=== PATIENT | female | born 1935 | race Caucasian/White ===

== ENCOUNTER 2024-01-18 17:17 | Inpatient (IN) | payer MEDICARE, OTHER, SELFPAY ==
[2024-01-18] VITALS (7 sets, daily range): BP systolic 121–167; BP diastolic 58–116
--- NOTE | 2024-01-18 14:40 | ED.GENMED ---
History of Present Illness
General
Chief Complaint: Fall
Source: patient
Exam Limitations: none
Time Seen by Provider: 01/18/24 14:11
Nursing documentation reviewed up to this point in time: agreed with
Travel History
Have you had any contact with someone who has COVID-19?: No
Do you have any symptoms of coronavirus? Fever > 100 degrees, chills, cough, shortness of breath, sore throat, loss of taste or smell, muscle aches, or headache?: No
History of Present Illness
History of Present Illness:
88-year-old female from [facility] presents to the ER for evaluation of right hip pain after fall. She was walking and rushing and reports that she lost her footing and fell landing on her right hip. She denies hitting her head her only
complaint is right hip pain with movement of right leg.
Past History
Past History
ED Past Medical History: HTN, Hypercholesterolemia and Other (Osteoporosis, diverticulosis)
ED Past Surgical History: Other (Laparotomy)
Review of Systems
Review of Systems
Allergies reviewed?: Yes
All Other Systems: ROS reviewed and negative except as documented in HPI and ROS
Constitutional: Reports no symptoms
ABD/GI: Reports no symptoms; Denies nausea or vomiting
Musculoskeletal: Reports other (right hip pain )
Skin: Reports no symptoms
Psychiatric: Reports no symptoms
Phy Exam
General Physical Exam
General Presentation: no apparent distress
General age: appears stated age
General Skin: warm and dry
General Habitus: normal
General Mental: alert
Neurological Exam
Neurological Exam: alert and oriented x3
Musculoskeletal Exam
Musculoskeletal Exam: other (Discomfort to right hip with any range of motion strong distal pulses.)
Skin Exam
Skin Exam: normal color and warm/dry
Psychiatric Exam
Psychiatric Exam: normal mood/affect
Course
Orders/Labs/Results
Orders:
Orders
01/18/24 14:40
Hip, Right 2-3 Views [CR Hip - RT w/wo Pel 2-3 Vw*] Urgent
Comment:
Reason For Exam: trauma
Include a pelvis x-ray?: Yes
01/18/24 14:46
Complete Blood Count/With Diff Urgent
Comprehensive Metabolic Panel Urgent
01/18/24 16:27
CT Lower Ext W/o Iv Cont Rt Urgent
Comment:
Reason For Exam: trauma
Abnormal Lab Results
01/18/24
14:46
MCH 32.8 H pg
(27.0-31.0)
Abs Immat Gran (auto) 0.1 H 10^3/uL
(0-0.05)
Absolute Lymphs (auto) 1.0 L 10^3/uL
(1.2-3.4)
Immature Gran % 1.2 H %
(0-0.5)
BUN 20 H mg/dl
(7-17)
01/18/24 14:46
01/18/24 14:46
Vital Signs
Initial and Last Documented VS:
Initial Vital Signs
Pulse Resp BP Pulse Ox
64 14 158/116 94
01/18/24 14:07 01/18/24 14:07 01/18/24 14:07 01/18/24 14:07
Last Documented Vital Signs
Temp Pulse Resp BP Pulse Ox
97.9 F 54 16 167/64 94
01/18/24 14:11 01/18/24 15:15 01/18/24 15:15 01/18/24 15:00 01/18/24 15:15
MDM/Problems Addressed
Differential Diagnosis Includes:
Not limited to hip fracture contusion for strain/dislocation
MDM/Problems Addressed:
Patient is a 88-year-old female who describes mechanical fall landing on right side. Patient complains of right hip pain no obvious deformity. Patient does have an obvious subcapital fracture. She denies hitting her head .
Case reviewed with orthopedics and admitting hospitalist orthopedics does recommend CAT scan and a right femur x-ray she is not blood thinners. Will keep n.p.o. after midnight discussed admitting hospitalist as well as documented. Patient is
comfortable at rest I did offer her medication for discomfort but she declines
Chronic conditions affecting care:
Hypertension hyperlipidemia
*Radiology
Radiology exam reviewed: radiology read reviewed (Right hip slightly impacted transverse subcapital fracture femoral head remains situated within the acetabulum without dislocation)
*Pulse Oximetry
Patient hypoxic: no
*Critical Care Note
Total Time (30-74mins, 75-104mins- exclusive of procedures): Not Applicable
Patient Management
Discussion with other providers: Station Engineer Main Line (ortho )
ED Attending Note
-
Portions of this chart may have been created with voice recognition software.� Occasional wrong word or��sound alike� substitutions may have occurred due to the inherent limitations of voice recognition software.
Discharge Plan
Departure
Patient Disposition: Admit
Date of Disposition: 01/18/24
Time of Disposition: 16:29
Admit to: Med/Surg
Admit to doctor: hospitalist
Presentation/result/management discussed w/ accepting MD/DO: Hospitalist
Patient with high blood pressure during this ER visit?: Yes
Condition: Fair
Covid-19: Not Applicable
Discharge Problem:
Closed fracture of right hip
Prescriptions:
No Action
atorvastatin 10 MG tablet
10 mg PO DAILY
donepezil 10 MG tablet
10 mg PO Q48H
clonazepam 0.5 MG tablet
0.5 mg PO DAILY
acetaminophen 500 MG tablet
500 mg PO Q6HPRN PRN (Reason: pain/fever)
levothyroxine 75 MCG tablet
75 mcg PO Q48H
magnesium 200 MG tablet
200 mg PO DAILY
cholecalciferol (vitamin D3) 2,000 UNITS tablet
2,000 units PO DAILY
multivit [id number] 186 [Hair, Skin and Nails Advanced] 1 EACH tablet
1 ea PO DAILY
cranberry fruit [cranberry] 450 MG tablet
450 mg PO DAILY
Referrals:
Mariam Ramachandran MD [Family Provider] -
Interventions
Interventions:
*Risk Screen - Suicide Last Done: 01/18/24 14:13
*General Assessment Last Done: 01/18/24 14:12
*Neglect/Abuse Screening Last Done: 01/18/24 14:13
*ED COVID-19 Vaccine History Last Done: 01/18/24 14:12
ED-Musculoskeletal Assessment Last Done: 01/18/24 14:13
ED- Neurological Assessment Last Done: 01/18/24 14:13
ED-Skin Assessment Last Done: 01/18/24 14:13
Discharge Date and Time
Print Language: ANGOLAN
[2024-01-18 14:56] LABS: % Basophils 0.4 % (0-2); % Eosinophils 3.3 % (0-6); % Immature Granulocytes 1.2 % (0-0.5); % Monocytes 5.1 % (1.7-9.3); Absolute Eosinophils 0.2 10^3/uL (0-0.7); Absolute Immature Granulocytes 0.1 10^3/uL (0-0.05); Absolute Monocytes 0.3 10^3/uL (0.1-0.6); Absolute Neutrophils 3.4 10^3/uL (1.4-6.5); Hematocrit 42.9 % (37.0-47.0); Hemoglobin 14.5 g/dL (12.0-16.0); Mean Corp Hgb Conc. 33.8 g/dL (33.0-37.0); Mean Corpuscular Hgb 32.8 pg (27.0-31.0); Mean Corpuscular Volume 97.1 fL (81.0-99.0); Mean Platelet Volume 10.2 fL (7.4-10.4); Nucleated Red Blood Cells % 0 %; Platelet Count 211 10^3/uL (130-400); Red Blood Cell Count 4.42 10^6/uL (4.20-5.40); Red Cell Dist. Width 13.3 % (11.5-14.5); White Blood Cell Count 4.9 10^3/uL (4.8-10.8)
[2024-01-18 15:29] LABS: ALT (SGPT) 27 U/L (0-35); AST (SGOT) 33 U/L (14-36); Albumin 4.4 g/dl (3.5-5.0); Alkaline Phosphatase 94 U/L (38-126); Blood Urea Nitrogen 20 mg/dl (7-17); Calcium 9.7 mg/dl (8.4-10.2); Carbon Dioxide 29 mmol/L (22-30); Chloride 103 mmol/L (98-107); Glucose 97 mg/dl (70-99); Sodium 139 mmol/L (135-145); Total Bilirubin 0.6 mg/dl (0.2-1.3); Total Protein 7.3 g/dl (6.3-8.2); eGFR > 60.00
--- NOTE | 2024-01-18 16:21 | HPS.HSE ---
Family Physician
<BRIGITTE Kramer - Last Filed: 01/18/24 16:56>
-
Family Physician: Mariam Ramachandran
Chief Complaint
<BRIGITTE Kramer - Last Filed: 01/18/24 16:56>
-
fall with hip pain
History of Present Illness
88-year-old with past medical history for hypertension, hyperlipidemia presented to us status post fall. Patient was resting from one building to other building. She was walking very fast she lost her balance and fell on her right side. She was
not able to get up from the floor. Patient complaining of right hip pain. Patient denies any headache dizziness or syncopal episode. Patient denies any fever, chills, chest pain, short of breath. Patient denies any abdominal pain, nausea,
vomiting or diarrhea. Patient denies dysuria hematuria.
Hip x-ray with Right hip slightly impacted transverse subcapital fracture. Femoral head remains situated within the acetabulum without dislocation. No osseous pelvic fracture identified. Admitted for further management
Medical History
<BRIGITTE Kramer - Last Filed: 01/18/24 16:56>
Past Medical History
Past Medical History: Reports Other
Additional Past Medical History:
Urinary tract infection
Hypercholesteremia
Hypothyroid
Alzheimer's
Hypertension
Perforated colon
Overactive bladder
Past Surgical History: Reports None
Social History
Tobacco: Non-smoker
Alcohol: None
Drug: None
Personal: Single
Living: Alone
Family History
Family History: Not pertinent
Allergies / Home Medications
Allergies reflects when Allergies were last updated in [facility].
Home Medications with original date entered in [facility]
Allergy/Medication List:
Allergies
Allergy/AdvReac Type Severity Reaction Status Date / Time
NKA - No Known Allergies Allergy Unknown Uncoded 09/21/16 04:32
Home Medications
acetaminophen 500 mg tablet 500 mg PO Q6HPRN PRN pain/fever 03/04/22
atorvastatin 10 mg tablet 10 mg PO DAILY 03/04/22
cholecalciferol (vitamin D3) 50 mcg (2,000 unit) tablet 2,000 units PO DAILY 03/04/22
clonazepam 0.5 mg tablet 0.5 mg PO DAILY 03/04/22
cranberry fruit 450 mg tablet (cranberry) 450 mg PO DAILY 03/04/22
donepezil 10 mg tablet 10 mg PO Q48H 03/04/22
levothyroxine 75 mcg tablet 75 mcg PO Q48H 03/04/22
magnesium 200 mg tablet 200 mg PO DAILY 03/04/22
multivitamin,min-ferrous fumarate 3.3 mg-folic 25 mcg-herb tablet (Hair, Skin and Nails Advanced) 1 ea PO DAILY 03/04/22
Review of Systems
<BRIGITTE Kramer - Last Filed: 01/18/24 16:56>
-
Constitutional: Reports No Symptoms
EENT: Reports No Symptoms
Respiratory: Reports No Symptoms
Cardiac: Reports No Symptoms
Abdomen/GI: Reports No Symptoms
: Reports No Symptoms
Musculoskeletal: Reports Other (Right hip pain)
Skin: Reports No Symptoms
Neurological: Reports No Symptoms
Endocrine: Reports No Symptoms
Hematologic/Lymphatic: Reports No Symptoms
Psych: Reports No Symptoms
Physical Exam
<BRIGITTE Kramer - Last Filed: 01/18/24 16:56>
Vital Signs
Vital Signs
Temp Pulse Resp BP Pulse Ox
97.9 F 54 16 167/64 94
01/18/24 14:11 01/18/24 15:15 01/18/24 15:15 01/18/24 15:00 01/18/24 15:15
Physical Exam
General: Well Developed, Well Nourished and No Apparent Distress
HEENT: NormoCephalic, Moist mucous membranes and Atraumatic
Respiratory: Clear
Cardiac: S1/S2 and Regular Rhythm; No Murmur or Rub
GI: Soft, Non Tender, Non Distended and Normal Bowel Sounds; No Organomegaly
Rectal: Deferred by Provider
Musculoskeletal: No Clubbing, No Cyanosis and No Edema
Skin: No Rash
Neuro: AO x 3 and Nonfocal/grossly intact
Psych: Calm
Laboratory Results
<BRIGITTE Kramer - Last Filed: 01/18/24 16:56>
-
01/18/24 14:46
01/18/24 14:46
Laboratory Results
Total Bilirubin 0.6 mg/dl (0.2-1.3) 01/18/24 14:46
AST 33 U/L (14-36) 01/18/24 14:46
ALT 27 U/L (0-35) 01/18/24 14:46
Alkaline Phosphatase 94 U/L (38-126) 01/18/24 14:46
Data Reviewed
<BRIGITTE Kramer - Last Filed: 01/18/24 16:56>
-
Diagnostic Radiology: Report Reviewed by me
Lab Data: Labs Reviewed by me
Impression/Plan
<BRIGITTE Kramer - Last Filed: 01/18/24 16:56>
-
# Status post fall with right hip fracture
-Hip x-ray with impression of Right hip slightly impacted transverse subcapital fracture. Femoral head remains situated within the acetabulum without dislocation. No osseous pelvic fracture identified
-PT/OT consulted
-obtain CT of hip and right femur x ray
-maintain NPO after MN
-Orthopedics consulted
# Essential hypertension
-Patient stable
-Amlodipine continued
# History of Alzheimer's
-Aricept continued
-clonazepam at HS
# Hyperlipidemia
-Statin continued
# Hypothyroidism
-Levothyroxine continued
# DVT prophylaxis
-SCD
# CODE STATUS
-Full code
<César Villarreal MD - Last Filed: 01/18/24 17:38>
-
# Status post fall with right hip fracture
-Hip x-ray with impression of Right hip slightly impacted transverse subcapital fracture. Femoral head remains situated within the acetabulum without dislocation. No osseous pelvic fracture identified
-PT/OT consulted
-obtain CT of hip and right femur x ray
-maintain NPO after MN
-Orthopedics consulted
# Essential hypertension
-Patient stable
-Amlodipine continued
# History of Alzheimer's
-Aricept continued
-clonazepam at HS
# Hyperlipidemia
-Statin continued
# Hypothyroidism
-Levothyroxine continued
# DVT prophylaxis
-SCD
# CODE STATUS
-Full code
I saw and examined the patient.
The VENDING MACHINE MECHANIC or PA's note was reviewed and I agree with the note.
Physical Exam
General: Well Developed, Well Nourished and No Apparent Distress
HEENT: NormoCephalic, Moist mucous membranes and Atraumatic
Respiratory: Clear
Cardiac: S1/S2 and Regular Rhythm; No Murmur or Rub
GI: Soft, Non Tender, Non Distended and Normal Bowel Sounds; No Organomegaly
Rectal: No rectal bleeding
Musculoskeletal: No Clubbing, No Cyanosis and No Edema
Skin: No Rash
Neuro: AO x 3 and Nonfocal/grossly intact
Psych: Calm
Comment:
88-year-old female had mechanical fall and sustained a right hip pain
No head trauma
No syncopal episode or loss of consciousness
# Status post fall with right hip fracture
-Hip x-ray with impression of Right hip slightly impacted transverse subcapital fracture. Femoral head remains situated within the acetabulum without dislocation. No osseous pelvic fracture identified
-PT/OT consulted
-obtain CT of hip and right femur x ray
-maintain NPO after MN
-Appreciate orthopedic input
# Essential hypertension
Was uncontrolled on admission with/ blood pressure 158/ 116 currently blood pressure 145/67. No chest pain or headache. Will continue to monitor and add as needed hydralazine
-Amlodipine continued
# History of Alzheimer's
No agitation.
-Aricept continued
-clonazepam at HS
# Hyperlipidemia
-Statin continued
# Hypothyroidism
-Levothyroxine continued
# DVT prophylaxis
-SCD
# CODE STATUS
-Full code
Total time spent to see the patient, examine the patient, review data and lab results, discuss treatment plan with patient, nursing staff, ER doctor around 75 minutes
[2024-01-18] MEDS: TYLENOL 650 MG PO (19:08)
[2024-01-18] MEDS: COLACE 100 MG PO (19:08)
[2024-01-18] MEDS: SENOKOT 17.1999999999999993 MG PO (19:08)
[2024-01-18] MEDS: ROXICODONE PO (19:09)
[2024-01-18] MEDS: DETROL LA 4 MG PO (19:09)
[2024-01-18] MEDS: ARICEPT 10 MG PO (21:36)
[2024-01-18] MEDS: KLONOPIN 0.5 MG PO (21:36)
[2024-01-18] MEDS: LIPITOR 10 MG PO (21:36)
[2024-01-19] VITALS (11 sets, daily range): BP systolic 102–133; BP diastolic 49–89; BMI 23.1
[2024-01-19] MEDS: TYLENOL PO ×3 (01:16→15:07)
--- NOTE | 2024-01-19 04:11 | PTCARENOTE ---
pt washed and first set of chg wipes completed.
[2024-01-19] MEDS: SYNTHROID 75 MCG PO (05:02)
[2024-01-19] MEDS: TYLENOL 650 MG PO ×3 (05:02→19:50)
--- NOTE | 2024-01-19 07:41 | W.PN.UPDATE ---
Update Note
Progress Note Update
Full H&P to follow
Patient admitted to [facility] following a mechanical fall resulting in right hip fracture. Plan is for OR for right hip hemiarthroplasty under the direction of Dr. Avilez later today. Remain NPO. Ancef dice person to OR. Surgical and blood
consents obtained and placed on chart. Will continue to follow
[2024-01-19] MEDS: SENOKOT 17.1999999999999993 MG PO ×2 (08:33→19:50)
[2024-01-19] MEDS: ANCEF 10 IV (08:33)
[2024-01-19] MEDS: MIRALAX 17 GRAMS PO (08:33)
[2024-01-19] MEDS: COLACE 100 MG PO ×2 (08:33→19:50)
[2024-01-19] MEDS: NORVASC 2.5 MG PO (08:35)
--- NOTE | 2024-01-19 08:58 | CON.ORTHO ---
Consultation
-
Date/Time Consultation Requested: 01/18/24
Date/Time Consultation Performed: 01/19/24 @7am
Requesting Provider: Asuncion Paul
Performing Provider: Karrie Reyes PAC for Humberto Avilez
Reason for Consultation: right hip fracture
Consultation - Orthopedics
History
HPI: 88yo female presented to [facility] following a fall. She states that she was going to [facility] when she realized she walked to the wrong location. She was then rushing to get to the correct location, when she tripped and fell, landing
on her left side. She was unable to bear weight on the leg. She reports that she walks daily and does not use any assistive devices. Xrays performed in the ER reveal a right hip fracture. Orthopedics has been consulted for further management. She is
not on any blood thinners. Currently, she is resting comfortably in bed and reports pain only with movement of the right leg.
PAST MEDICAL HISTORY: hypertension, hypercholesterol, osteoporosis, diverticulitis
PAST SURGICAL HISTORY: laparotomy
SOCIAL HISTORY: denies tobacco, alcohol. She lives at [facility] in independent living
FAMILY HISTORY: Noncontributory
REVIEW OF SYSTEMS: 12 point review of systems obtained and negative except those mentioned in the HPI
Allergies / Home Medications
Allergy/AdvReac Type Severity Reaction Status Date / Time
NKA - No Known Allergies Allergy Unknown Uncoded 09/21/16 04:32
�Medication �Instructions �Recorded
acetaminophen 500 mg tablet 500 mg PO Q6HPRN PRN pain/fever 03/04/22
atorvastatin 10 mg tablet 10 mg PO HS 03/04/22
cholecalciferol (vitamin D3) 50 2,000 units PO DAILY 03/04/22
mcg (2,000 unit) tablet
clonazepam 0.5 mg tablet 0.5 mg PO HS 03/04/22
cranberry fruit 450 mg tablet 900 mg PO HS 03/04/22
(cranberry)
donepezil 10 mg tablet 10 mg PO HS 03/04/22
levothyroxine 75 mcg tablet 75 mcg PO Q48H 03/04/22
magnesium 200 mg tablet 400 mg PO DAILY 03/04/22
amlodipine 2.5 mg tablet 2.5 mg PO DAILY 01/18/24
polyethylene glycol 3350 17 gram 17 g PO DAILY 01/18/24
oral powder packet (Miralax)
solifenacin 10 mg tablet 10 mg PO QPM 01/18/24
Vital Signs / Lab Results
Temp Pulse Resp BP Pulse Ox
98.4 F 56 16 133/69 97
01/19/24 07:44 01/19/24 07:44 01/19/24 07:44 01/19/24 07:44 01/19/24 07:44
01/18/24 14:46
01/18/24 14:46
RADIOGRAPHIC FINDINGS:
Xrays right hip and femur: Right hip slightly impacted transverse subcapital fracture. Femoral head remains situated within the acetabulum without dislocation. No osseous pelvic fracture identified
CT right lower extremity: Right hip subcapital fracture. Slightly impacted. Subtle apex medial angulation. Mild medial displacement of the femoral neck relative to the femoral head. The femoral head remains situated within the acetabulum, without
evidence of dislocation
PHYSICAL EXAM:
General: well developed well nourished female in no acute distress
HEENT: NCAT, sclera anicteric, normal hearing
Heart: No JVD
Lungs: Normal work of breathing on room air
MSK: Focused exam of right lower extremity reveals skin intact. Right leg shortened and externally rotated. +TTP generally about the hip. +Log roll. Calf soft and nontender. Able to plantarflex/dorsiflex the ankle. NVI distally
Assessment / Plan
ASSESSMENT: 88yo female with right subcapital hip fracture following mechanical fall
PLAN: Ms. Cardoza unfortunately sustained a right hip fracture following a mechanical fall last evening. Recommend surgical fixation of this hip fracture. The risks, benefits, potential complications, and expected postop course were reviewed. She
agrees to proceed. Will plan for OR for right hip hemiarthroplasty later today under the direction of Dr. Avilez given she is medically cleared. Surgical and blood consents were obtained. Remain NPO. Ancef hotel yardperson to OR. She is to remain on bedrest
until postop. Will require PT/OT evaluation postoperatively. Continue with current pain management regimen as needed. We will continue to follow along.
--- NOTE | 2024-01-19 09:35 | W.PN.HOSP.TC ---
Today's Communication/Plan
-
.
Assessment / Plan
Assessment / Plan
Physical Exam
General: Well Developed, Well Nourished and No Apparent Distress
HEENT: NormoCephalic, Moist mucous membranes and Atraumatic
Respiratory: Clear
Cardiac: S1/S2, + murmur.
GI: Soft, Non Tender, Non Distended and Normal Bowel Sounds; No Organomegaly
Rectal: No rectal bleeding.
Musculoskeletal: No Clubbing, No Cyanosis and No Edema
Skin: No Rash
Neuro: AO x 3 and Nonfocal/grossly intact
Psych: Calm
# Right subcapital hip fracture following mechanical fall with
right hip hemiarthroplasty patient is having pain upon mild
c/w pain control. Movement while in bed
Good peripheral pulses
DVT prophylaxis with mechanical form pending surgery as requested by Ortho doctor.
Appreciate Orth input
# Pre- Op evaluation
Patient denied history of coronary artery disease or heart failure. No chest pain upon activity at home.
Talk to the daughter, no history of heart failure or angina
Patient has heart murmur on examination
Will order EKG.
She is not in heart failure.
Ordered echocardiogram but should not prevent patient from having surgery if echo is still
Benefits of surgery and early ambulation outweigh the risks
# Essential hypertension
-Patient stable
-Amlodipine continued
# History of Alzheimer's
-Aricept continued. No agitation noted
-clonazepam at HS
# Hyperlipidemia
-Statin continued
# Hypothyroidism
-Levothyroxine continued
# DVT prophylaxis
-SCD
# CODE STATUS
-Full code
Daughter requested to talk to surgery about operation. Reached out to service.
Total time spent to see the patient, examine the patient, review data and lab results, discuss treatment plan with patient, daughter, nursing staff around 55 minutes
Anticipated Discharge: > 48 hours
Subjective/Interval History
-
Date of Service: January 19, 2024
No chest pain
No sob
No fevers
Objective Data
-
Vital Signs:
Vital Signs
Temp Pulse Resp BP Pulse Ox
98.4 F 56 16 133/69 97
01/19/24 07:44 01/19/24 07:44 01/19/24 07:44 01/19/24 07:44 01/19/24 07:44
--- NOTE | 2024-01-19 15:19 | CM ---
Addendum entered by Lainey Prater RN 01/19/24 16:01:
CM spoke with the patient's daughter at bedside. The patient resides in an independent living apartment at [facility]. The patient does no use any DME, no VN or SNF in the past. The patient's discharge plans will most likely be to a SNF/rehab
prior to transitioning back to apartment. CM continues to be available to patient/family and is monitoring medical plan for needs at discharge.
Plan: Discharge to SNF/rehab prior to transitioning back to apartment. No precert required. [facility] SNF would be first choice.
Original Note:
Reviewed the chart notes. Patient out of room today for OR.
--- NOTE | 2024-01-19 15:38 | PTCARENOTE ---
Pt's daughters updated that patient is still in the OR.
[2024-01-19 18:10] LABS: Hematocrit 35.1 % (37.0-47.0); Hemoglobin 12.3 g/dL (12.0-16.0)
[2024-01-19] MEDS: DETROL LA 4 MG PO (19:12)
[2024-01-19] MEDS: ASPIRIN 325 MG PO (19:12)
--- NOTE | 2024-01-19 20:39 | OR.RPT ---
Operative Report
Operative Report
Orthopedic Surgery Operative Report
Date of Surgery: 01/19/24
PREOPERATIVE DIAGNOSES:
1. Right subcapital femoral neck fracture
POSTOPERATIVE DIAGNOSES:
1. Right subcapital femoral neck fracture
PROCEDURE PERFORMED:
1. Right hip hemiarthroplasty
SURGEON: Humberto Avilez D.O.
CO-SURGEON: Dusty Shafer MD
ASBESTOS TEXTILE SUPERVISOR: YESSY Muhammad, who helped with patient and limb positioning and retraction
ANESTHESIA: General endotracheal
COMPLICATIONS: Intraoperative femur fracture, repaired with cables
ESTIMATED BLOOD LOSS: 100 cc
DRAINS: None
SPECIMEN: None
IMPLANTS:
[employer] Implants-
Cemented size 12 Versys stem
45 mm Bipolar
28mm +3.5mm head
INDICATION FOR SURGERY: Patient is an 88 year old female who presented to [facility] status post fall. Patient was unable to ambulate immediately after the fall. Imaging at the hospital demonstrated a right subcapital femoral neck
fracture. Due to the nature of the injury, a decision was made to proceed with a right hip hemiarthroplasty. All operative, nonoperative options were discussed with the patient and/or family. The risks, benefits, alternatives, and indications
were discussed with the patient in detail. The risks include, but are not limited to bleeding requiring transfusion, infection, need for reoperation, nerve or blood vessel damage, anesthetic risks, need for further surgery, continued pain, blood
clots in the legs, heart attack, stroke, , neurovascular injury, dislocation, continued pain, numbness, weakness. The patient understands the risks and elected to proceed. Informed consent was obtained preoperatively from patient and
daughter.
PROCEDURE IN DETAIL: The patient was identified in the preoperative holding area. The surgical site was appropriately marked. The patient was brought to the operating room. General endotracheal anesthesia was achieved. The patient was given
routine preop intravenous antibiotics and was positioned on the operating table. Great care was taken to pad and protect all extremities and pressure points. The patient was prepped and draped in the usual sterile manner. A preoperative surgical
time-out was taken.
A linear incision was made along the anterior one third aspect of the greater trochanter. Skin and subcutaneous tissues were dissected sharply with a knife. All bleeding was controlled using Bovie electrocautery. Dissection was carried deep until
the fascia was reached. A small opening was made in the fascia using the Bovie. The tensor was then split using Metzenbaum scissors. The underlying gluteus medius musculature and greater trochanter were visualized. The gluteus medius and the
proximal aspect of the vastus lateralis muscles were elevated off of the femur using Bovie electrocautery. The gluteus minimus muscle was also partially elevated off of the proximal femur in a similar fashion using Bovie electrocautery. The
capsule was then encountered medially. A capsulotomy was performed to reveal the fractured femoral neck. Fracture hematoma was encountered. Fracture hematoma was removed. Retractors were introduced underneath the fractured femoral neck. A neck
cut was performed with an oscillating saw. The femoral head was then removed from the hip socket. The femoral head was measured to obtain a size for the implant. The hip socket was then irrigated and all bony remnants and debris were removed.
Attention was turned towards preparing the femoral shaft. A crap game box person was used to gain access to the femoral canal. A lateralizer was used followed by sequential broaches to prepare the femoral canal for stent implantation. Once adequate broach
fit in the femoral canal was obtained, trialing was initiated. While trialing and re-reduction of the trial head, an anterior femur cortical fracture was encountered. The trials were removed, the fracture was reduced and cables were applied.
Intraoperative fluoroscopy was used- no distal propagation of the fracture was evident. A cable was applied distal to the lesser trochanter as well. Trialing was once again initiated. A standard neck and a size 45 head was utilized. This was found
to be too slghtly loose. A +3.5 head offset was utilized. The hip was relocated and taken through a range of motion which included flexion with internal rotation and extension with external rotation. The hip was noted to be stable. The hip was
once again dislocated and the implants were removed. The wound was copiously irrigated. Due to the poor bone quality and age of the patient, a decision was made to proceed with cementation of the stem. The femoral canal was then copiously
irrigated, cleaned and dried in preparation for cement placement. A cement restrictor was placed in the femoral canal. Cement was then placed in the femoral canal. Once cement was of adequate consistency, the final implant stem was inserted into
the femoral canal. Excess cement was removed. Once the cement had hardened, the bipolar head was placed onto the lord taper and impacted into place. The hip was then relocated. Final range of motion was checked and was found to be stable. The
surgical site was then copiously irrigated with saline. The hip capsule was repaired with 0-Vicryl suture. The abductors were repaired using #1 Ethibond suture. Vastus lateralis was repaired using 0-Vicryl suture. The wound was once again
irrigated with saline. The fascia was repaired using vicryl suture. The deep and subcutaneous tissues were approximated using vicryl suture as well. Skin was approximated using renato. Patient tolerated the procedure well with no immediate
complications. All counts at the end of the procedure were correct.
Humberto Avilez D.O.
Orthopedic Surgery
[2024-01-19] MEDS: ARICEPT 10 MG PO (21:38)
[2024-01-19] MEDS: KLONOPIN 0.5 MG PO (21:38)
[2024-01-19] MEDS: LIPITOR 10 MG PO (21:38)
[2024-01-20] MEDS: TYLENOL PO ×3 (00:54→23:06)
[2024-01-20 03:58] VITALS: BP 106/57
[2024-01-20 06:29] LABS: Hematocrit 34.3 % (37.0-47.0); Hemoglobin 11.7 g/dL (12.0-16.0); Mean Corp Hgb Conc. 34.1 g/dL (33.0-37.0); Mean Corpuscular Volume 96.6 fL (81.0-99.0); Mean Platelet Volume 9.8 fL (7.4-10.4); Platelet Count 181 10^3/uL (130-400); Red Blood Cell Count 3.55 10^6/uL (4.20-5.40); Red Cell Dist. Width 13.4 % (11.5-14.5); White Blood Cell Count 8.2 10^3/uL (4.8-10.8)
[2024-01-20 06:49] LABS: Blood Urea Nitrogen 21 mg/dl (7-17); Calcium 8.7 mg/dl (8.4-10.2); Carbon Dioxide 26 mmol/L (22-30); Chloride 104 mmol/L (98-107); Estimated Creatinine Clearance 39 ml/min; Glucose 120 mg/dl (70-99); Magnesium 2.5 mg/dl (1.6-2.3); Potassium 3.8 mmol/L (3.5-5.1); Sodium 137 mmol/L (135-145); eGFR > 60.00
[2024-01-20 07:40] VITALS: BP 123/51
[2024-01-20] MEDS: ANCEF 5 IV ×2 (07:56→15:58)
[2024-01-20] MEDS: COLACE 100 MG PO ×2 (07:56→20:01)
[2024-01-20] MEDS: FLUSH (NSS) 2 FLUSH IV ×2 (07:56→15:59)
[2024-01-20] MEDS: SENOKOT 17.1999999999999993 MG PO ×2 (07:56→20:01)
[2024-01-20] MEDS: ASPIRIN 325 MG PO (07:56)
[2024-01-20] MEDS: TYLENOL 650 MG PO ×4 (07:56→20:01)
[2024-01-20] MEDS: MIRALAX 17 GRAMS PO (07:56)
[2024-01-20] MEDS: NORVASC PO (08:00)
--- NOTE | 2024-01-20 08:02 | W.PN.ORTHO ---
Documented by User: Dona Mccoy PA-C 01/20/24 08:07
Today's Communication / Plan
-
88 yo F POD1 right hip hemiarthroplasty with intraop femur fracture repaired with cables under the direction of Dr. Avilez
--Patient may be weight bearing as tolerated with assistive device. Anterior hip precautions, no internal rotation or active abduction. We appreciate the assistance of PT/OT.
--Recommend ASA 325 mg daily x4 weeks for DVT ppx.
--Pain control per primary. Ice for pain and edema control.
--Hgb 11.7 this AM. Continue to monitor.
--Maintain Aquacel dressing until 7-10 days post-op. Staple removal at 2 weeks post-op.
--Case management consult for discharge planning.
--Orthopedics will continue to follow along.
Assessment
.
Distal Motor Intact: Yes
Dressing:
Clean, dry and intact.
Plan
.
Surgery / Date: R hip hemiarthroplasty, [place], 01/19/2024
DVT Prophylaxis: Aspirin
Activity:
Out of bed.
PT/OT
Subjective
.
.:
Ms. Cardoza is POD1 following her right hip hemiarthroplasty with intraoperative femur fracture, repaired with cables performed by Dr. Avilez. She is resting comfortably in bed this morning, and denies any pain in the hip at present. She has no
questions or concerns at this time.
Vital Signs and Labs
.
Vital Signs and Labs:
Lab Results
01/20/24 05:54
01/20/24 05:54
Temp Pulse Resp BP Pulse Ox
98.4 F 71 18 106/57 96
01/20/24 03:58 01/20/24 03:58 01/20/24 03:58 01/20/24 03:58 01/20/24 03:58
Physical Exam
-
Directed exam of the right lower extremity reveals Aquacel dressing clean, dry and intact. No tenderness to palpation about the hip. Thigh soft and compressible. Calf soft and nontender. Patient able to wiggle toes, plantar and dorsiflex ankle.
Neurovascularly intact distally.

Documented by User: Humberto Avilez DO 01/20/24 09:45
Today's Communication / Plan
-
88 yo F POD1 right hip hemiarthroplasty with intraop femur fracture repaired with cables under the direction of Dr. Avilez
--Patient may be weight bearing as tolerated with assistive device. Anterior hip precautions, no external rotation or active abduction. We appreciate the assistance of PT/OT.
--Recommend ASA 325 mg daily x4 weeks for DVT ppx.
--Pain control per primary. Ice for pain and edema control.
--Hgb 11.7 this AM. Continue to monitor.
--Maintain Aquacel dressing until 7-10 days post-op. Staple removal at 2 weeks post-op.
--Case management consult for discharge planning.
--Orthopedics will continue to follow along.
[2024-01-20 09:00] VITALS: BP 114/54; BP 129/63; BP 129/65; PULSE 59; PULSE 62; O2SAT 93; O2SAT 94
[2024-01-20] MEDS: ROXICODONE 5 MG PO ×2 (09:18→21:35)
[2024-01-20 11:36] VITALS: BP 120/57
--- NOTE | 2024-01-20 15:11 | CM ---
Patient seen bedside with daughter, discussed PT recommendation of SNF. Patients first choice is [facility] as [facility] message sent to Kim in admissions. Patients second choice is [facility] if no
bed at [facility]. CM will continue to follow for discharge planning needs.
Plan; SNF pending accepting facility.
[2024-01-20 15:40] VITALS: BP 110/50
--- NOTE | 2024-01-20 16:18 | W.PN.HOSP.TC ---
Today's Communication/Plan
-
dc
Assessment / Plan
Assessment / Plan
Physical Exam
General: Well Developed, Well Nourished and No Apparent Distress
HEENT: NormoCephalic, Moist mucous membranes and Atraumatic
Respiratory: Clear
Cardiac: S1/S2, + murmur.
GI: Soft, Non Tender, Non Distended and Normal Bowel Sounds; No Organomegaly
Rectal: No rectal bleeding.
Musculoskeletal: No Clubbing, No Cyanosis and No Edema
Skin: No Rash
Neuro: AO x 3 and Nonfocal/grossly intact
Psych: Calm
# Right subcapital hip fracture following mechanical fall s/p Right hip hemiarthroplasty by Dr Avilez on 01/19/24.
c/w pain control.
Good peripheral pulses
DVT prophylaxis with mechanical form pending surgery as requested by Ortho doctor.
Appreciate Orth input
# Heart murmur
Echocardiogram showed left ventricular ejection fraction 55 to 60%, mild LVH, aortic sclerosis without stenosis. Mild aortic regurgitation, trace tricuspid regurgitation. Trace mitral regurgitation.
# Essential hypertension
-Patient stable
-Amlodipine continued
# History of Alzheimer's
-Aricept continued. No agitation noted
-clonazepam at HS
# Hyperlipidemia
-Statin continued
# Hypothyroidism
-Levothyroxine continued
# DVT prophylaxis
-SCD
# CODE STATUS
-Full code
Daughter requested to talk to surgery about operation. Reached out to service.
Total discharge time spent to see the patient, examine the patient, review data and lab results, discuss discharge plan with patient, nursing staff around 65 minutes
Anticipated Discharge: Today
Subjective/Interval History
-
Date of Service: January 20, 2024
pain is better controlled
no chest pain or sob
Objective Data
-
Labs:
Laboratory Results
01/20/24
05:54
WBC 8.2
Hgb 11.7 L
Hct 34.3 L
Plt Count 181
Sodium 137
Potassium 3.8
Chloride 104
Carbon Dioxide 26
BUN 21 H
Creatinine 0.9
Glucose 120 H
Calcium 8.7
Vital Signs:
Vital Signs
Temp Pulse Resp BP Pulse Ox
98.7 F 58 14 120/57 91
01/20/24 11:36 01/20/24 11:36 01/20/24 11:36 01/20/24 11:36 01/20/24 11:36
I&O
01/19/24 01/20/24 01/21/24
06:59 06:59 06:59
Intake Total 290 / 290
Output Total 1320 / 1320
Balance -1030 / -1030
[2024-01-20] MEDS: DETROL LA 4 MG PO (17:31)
[2024-01-20] MEDS: KLONOPIN 0.5 MG PO (21:08)
[2024-01-20] MEDS: LIPITOR 10 MG PO (21:08)
[2024-01-20] MEDS: ARICEPT 10 MG PO (21:08)
[2024-01-20 23:21] VITALS: BP 137/62
[2024-01-21] MEDS: TYLENOL PO (03:01)
[2024-01-21] MEDS: SYNTHROID 75 MCG PO (05:58)
[2024-01-21 07:16] VITALS: BP 137/85
--- NOTE | 2024-01-21 07:16 | W.PN.ORTHO ---
Today's Communication / Plan
-
PT/OT
Weightbearing as tolerated
Aspirin/mechanical devices for DVT prophylactics
Skin clip removal 2 weeks postop
assisted facility once medically stable
Assessment
.
Distal Motor Intact: Yes
Dressing:
Clean, dry and intact.
Plan
.
Surgery / Date: R hip hemiarthroplasty, [place], 01/19/2024
DVT Prophylaxis: Aspirin
Activity:
Out of bed.
PT/OT
Discharge Plan: SNF
Subjective
.
.:
Patient resting comfortably.
Vital Signs and Labs
.
Vital Signs and Labs:
Lab Results
01/20/24 05:54
01/20/24 05:54
Temp Pulse Resp BP Pulse Ox
98.3 F 67 14 137/62 91
01/20/24 23:21 01/20/24 23:21 01/20/24 23:21 01/20/24 23:21 01/20/24 23:21
--- NOTE | 2024-01-21 08:40 | PN.CDI ---
Addendum entered and electronically signed by César Villarreal MD 01/21/24 09:15:
Traumatic fracture due to mechanical fall only
Original Note:
CDI
- -
CDI:
Physician Documentation Request
Admit Date: 01/18/24 17:17
Dear Doctor Phil,
Please review the following and provide your response in the progress notes.
Clinical Indicators:
01/17 Pt admitted for right hip fracture
01/17 ER Note: ''She was walking and rushing and reports that she lost her footing and fell landing on her right hip. home medication include-cholecalciferol (vitamin D3) 2,000 UNITS tablet.'
01/18 Consultation Note: 'PMH: osteoporosis.
Please provide further specificity regarding the diagnosis of fracture:
Multifactorial due to Traumatic mechanical fall / Osteoporosis
Traumatic fracture due to mechanical fall only
Other
Use of terms such as suspected, likely, concern for, or probable (associated with a specific diagnosis that is being evaluated, monitored, or treated as if it exists) are acceptable and can be coded in the inpatient setting, when documented at the
time of discharge.
Thank you,
Sol Cortés RN, BSN
CDI Specialist
Available via [place] Text
Please use your independent medical judgment in providing your response.
[2024-01-21] MEDS: ASPIRIN 325 MG PO (08:52)
[2024-01-21] MEDS: SENOKOT 17.1999999999999993 MG PO (08:52)
[2024-01-21] MEDS: TYLENOL 650 MG PO ×2 (08:52→11:16)
[2024-01-21] MEDS: COLACE 100 MG PO (08:52)
[2024-01-21] MEDS: MIRALAX 17 GRAMS PO (08:53)
[2024-01-21] MEDS: NORVASC 2.5 MG PO (08:53)
[2024-01-21] MEDS: ROXICODONE 5 MG PO (08:58)
--- NOTE | 2024-01-21 10:25 | CM ---
Addendum entered by Lainey Prater RN 01/21/24 11:38:
Call report to: [phone]
Fax report to: [phone]
Medical and transport forms on chart.
Original Note:
Reviewed the chart notes and spoke with the patient at the bedside. IMM signed and placed on chart. Patient is discharged today to [facility] pending negative Covid screen. CM continues to be available to patient/family and is monitoring medical
plan for needs at discharge.
Plan: Discharge to [facility] pending negative Covid screen.
[2024-01-21] MEDS: MILK OF MAGNESIA 30 ML PO (11:16)
[2024-01-21 11:29] LABS: COVID-19 Antigen Negative (Negative)
[2024-01-21 12:18] VITALS: BP 137/69
--- NOTE | 2024-01-21 13:33 | W.DCSUMMARY ---
Discharge Summary
Discharge Data
Date of Admission: 01/18/24
Date of Discharge: 01/21/24
-
Pending Results: No
Hospital Course
88 years old female admitted to the hospital after mechanical fall. No loss of consciousness. No head trauma. Patient was diagnosed with right subcapital hip fracture. Patient was evaluated by orthopedic doctor. She underwent right hip
hemiarthroplasty by Dr. Avilez on 01/19/24. No complications reported. She was started on aspirin 325 mg for DVT prophylaxis. Pain was controlled with Tylenol [id number]. Patient was found to have heart murmur. No history of cardiac
disease. Echocardiogram showed left ventricular ejection fraction 55 to 60%, mild concentric left ventricular hypertrophy, aortic sclerosis without stenosis, mild aortic regurgitation, trace tricuspid regurgitation and trace mitral regurgitation.
No changes were made to her blood pressure medication. Patient remained hemodynamically stable and was discharged to care home facility in a stable condition.
Physical Exam
General: Well Developed, Well Nourished and No Apparent Distress
HEENT: NormoCephalic, Moist mucous membranes and Atraumatic
Respiratory: Clear
Cardiac: S1/S2, + murmur.
GI: Soft, Non Tender, Non Distended and Normal Bowel Sounds; No Organomegaly
Rectal: No rectal bleeding.
Musculoskeletal: No Clubbing, No Cyanosis and No Edema. Clean dressing right hip. No discharge or bleeding. Good peripheral pulses.
Skin: No Rash
Neuro: AO x 2 self and surroundings, and Nonfocal/grossly intact
Psych: Calm
Total discharge time spent to see the patient, examine the patient, review data and lab results, discuss discharge plan with patient, daughter, case work aide, nursing staff around 65 minutes
Discharge Plan
-
Patient Disposition: [facility]NF
Discharge Diagnosis/Procedures: Right subcapital hip fracture following mechanical fall s/p Right hip hemiarthroplasty by Dr Avilez on 01/19/24.
Weightbearing as tolerated
Aspirin/mechanical devices for DVT prophylactics
Skin clip removal 2 weeks postop
Diet: As tolerated
Activity: With Walker
Referrals:
Humberto Avilez DO [Active] - in two weeks
Mariam Ramachandran MD [Family Provider] - in one to two weeks
Prescriptions:
New
sennosides [Senna Laxative] 8.6 mg Tablet
17.2 mg PO BID Qty: 30 0RF
aspirin 325 mg Tablet
325 mg PO DAILY Qty: 28 0RF
magnesium hydroxide 400 mg/5 mL Suspension
30 ml PO DAILYPRN PRN (Reason: constipation) Qty: 10 0RF
docusate sodium 100 mg Capsule
100 mg PO BID Qty: 20 0RF
acetaminophen 500 mg capsule
1,000 mg PO TID Qty: 60 0RF
tramadol 25 mg tablet
25 mg PO Q6H PRN (Reason: severe pain) Qty: 10 0RF
Continued
atorvastatin 10 MG tablet
10 mg PO HS
donepezil 10 MG tablet
10 mg PO HS
clonazepam 0.5 MG tablet
0.5 mg PO HS
Patient Comments:
01/18/2024: last filled 11/20/23, 30 tabs for 30 days from [facility]
levothyroxine 75 MCG tablet
75 mcg PO Q48H
magnesium 200 MG tablet
400 mg PO DAILY
cholecalciferol (vitamin D3) 2,000 UNITS tablet
2,000 units PO DAILY
polyethylene glycol 3350 [Miralax] 17 gram Powder In Packet
17 g PO DAILY
amlodipine 2.5 mg Tablet
2.5 mg PO DAILY
solifenacin 10 mg tablet
10 mg PO QPM
Discontinued
acetaminophen 500 MG tablet
500 mg PO Q6HPRN PRN (Reason: pain/fever)
cranberry 450 MG tablet
900 mg PO HS
Discharge Orders:
Discharge Patient (As Directed); Ordered 01/21/24
Ordered By: César Villarreal
Discharge Date and Time
Print Language: MALTESE
== END 2024-01-21 15:22 | DRG 522 ==
LOC: 2 SOUTH 17:17
PROVIDERS: Nurse Practitioner; Physician Assistant; ADMITTING PHYSICIAN Internal Medicine; CONSULT PHYSICIAN Orthopaedic Surgery; EMERGENCY PHYSICIAN Emergency Medicine; FAMILY PHYSICIAN Internal Medicine Geriatric Medicine
PROC: 0SRR0J9 Replacement of Right Hip Joint, Femoral Surface with Synthetic Substitute, Cemented, Open Approach (ICD-10-PCS; 2024-01-19)
DX: S72.011A Unspecified intracapsular fracture of right femur, initial encounter for closed fracture (principal); K57.80 Diverticulitis of intestine, part unspecified, with perforation and abscess without bleeding; N39.0 Urinary tract infection, site not specified; E78.00 Pure hypercholesterolemia, unspecified; I10 Essential (primary) hypertension; M81.0 Age-related osteoporosis without current pathological fracture; E03.9 Hypothyroidism, unspecified; F02.80 Dementia in other diseases classified elsewhere, unspecified severity, without behavioral disturbance, psychotic disturbance, mood disturbance, and anxiety; G30.9 Alzheimer's disease, unspecified; N32.81 Overactive bladder; W01.0XXA Fall on same level from slipping, tripping and stumbling without subsequent striking against object, initial encounter; Y93.01 Activity, walking, marching and hiking; Y92.89 Other specified places as the place of occurrence of the external cause; Z79.890 Hormone replacement therapy
CPT/HCPCS: 73502; 73552; 73700; 80048; 80053; 83735; 85014; 85018; 85025; 85027; 86850; 86900; 86901; 87070; 87811; 93005; 93306; 97163; 97167; 99285; C1713; C1776

== ENCOUNTER → 2024-03-02 09:38 | Outpatient (REF) | payer MEDICARE, OTHER, SELFPAY | LOC: RAD 09:38 | PROVIDERS: ATTENDING PHYSICIAN Orthopaedic Surgery | DX: M79.661 Pain in right lower leg (principal) | CPT/HCPCS: 93971 ==

== ENCOUNTER 2024-06-22 18:00 | Inpatient (IN) | payer MEDICARE, OTHER, SELFPAY ==
[2024-06-22] VITALS (8 sets, daily range): BP systolic 140–170; BP diastolic 61–75; BMI 22.5; BMI 22.2
[2024-06-22 13:34] LABS: Urine Albumin Negative (Neg - Trace); Urine Bilirubin Negative (Negative); Urine Character Slightly Cloudy (Clear); Urine Color Yellow; Urine Glucose Negative (Negative); Urine Ketone Negative (Negative); Urine Leukocyte 2+ (Negative); Urine Nitrite Negative (Negative); Urine Occult Blood 1+ (Negative); Urine Urobilinogen Negative (Neg - 1+)
[2024-06-22 13:47] LABS: Urine Urothelial Cell 0-2 /LPF (FEW)
[2024-06-22 13:48] LABS: Urine Bacteria Few (Negative)
--- NOTE | 2024-06-22 14:02 | ED.GENMED ---
History of Present Illness
General
Chief Complaint: Back Pain
Source: patient
Exam Limitations: none
Time Seen by Provider: 06/22/24 13:38
History of Present Illness
History of Present Illness:
See MDM
Past History
Past History
ED Past Medical History: HTN, Hypercholesterolemia and Other (Osteoporosis, diverticulosis)
ED Past Surgical History: Other (Laparotomy)
Social History
Tobacco: Non-smoker
Alcohol: None
Phy Exam
Physical Exam
Physical Exam:
See MDM
Course
Orders/Labs/Results
Orders:
Orders
06/22/24 13:22
Urinalysis Reflex To Culture Urgent
Date Specimen was Collected: 06/22/24
Time Specimen was Collected: 13:20
Urine Microscopic Reflex Cult Urgent
Urine Culture Urgent
DINESH Source: U
Specimen Description:
Date Specimen was Collected: 06/22/24
Time Specimen was Collected: 13:20
06/22/24 13:58
CT Abd/pel Without Iv Or Oral Urgent
Comment:
Reason For Exam: R flank pain
diazePAM [Valium Injection] 2 mg IV NOW STA
06/22/24 15:13
Basic Metabolic Panel Urgent
Complete Blood Count/With Diff Urgent
Abnormal Lab Results
06/22/24 06/22/24
13:22 15:13
MCH 32.3 H pg
(27.0-31.0)
Absolute Lymphs (auto) 0.7 L 10^3/uL
(1.2-3.4)
Neutrophils % 79.1 H %
(42.2-75.2)
Lymphocytes % 14.2 L %
(20.5-51.1)
BUN 25 H mg/dl
(7-17)
Glucose 102 H mg/dl
(70-99)
Ur Occult Blood Reflex 1+ A
(Negative)
Leukocyte Esterase Rfl 2+ A
(Negative)
Urine RBC 7-10 A /HPF
(0-2)
Urine WBC (Reflex) 11-15 A /HPF
(0-5)
Urine Bacteria (Reflex) Few A
(Negative)
06/22/24 15:13
06/22/24 15:13
Vital Signs
Initial and Last Documented VS:
Initial Vital Signs
BP
170/75
06/22/24 13:05
Last Documented Vital Signs
Temp Pulse Resp BP Pulse Ox
98.8 F 54 18 142/69 97
06/22/24 13:06 06/22/24 13:06 06/22/24 13:06 06/22/24 15:14 06/22/24 16:00
MDM/Problems Addressed
Differential Diagnosis Includes:
HPI and MDM Narrative:
88-year-old female presenting for evaluation of sudden onset of right flank pain. Patient states the pain is intermittent but worse with certain movements. She denies any recent activity or trauma
On exam, she does have tenderness to the right flank. Given her history, will obtain CT to rule out kidney stone pathology. Will give dose of IV Valium
Physical exam
General: Well appearing and non-toxic
HEENT: protecting airway
Neck: appears supple
CV: No evidence of cyanosis
Resp: No accessory muscle use
Abd: Non-distended and nontender
Back: Tenderness to right CVA and lumbar musculature.
Extremities: No deformities
Neuro: alert
Psych: Normal affect
Skin: Intact
Problems Addressed including Acute and Chronic Conditions affecting care:
1. Right flank pain
Acuity: acute
Prognosis: stable
Details: Given the pain, will obtain CT to rule out kidney stone pathology. Will give Valium to treat muscle spasm
Updates
CT negative. Urinalysis appears contaminated. Lab work without significant abnormality which could correlate to her pain. After Valium, she is feeling somewhat better but I am unable to get her up to walk. Will admit for PT
Differential Diagnosis (but not limited to): Muscle spasm, kidney stone, pyelonephritis
Testing considered: Lumbar x-ray
Drug therapy (if applicable): OTC meds, please see d/c instruction regarding Rx drugs
Amount and/or Complexity of Data Reviewed
Clinical info obtained from: Patient
External data reviewed: N/A
Labs I independently reviewed (but not limited to): Hematuria noted
Radiology: The CT scan was personally and independently reviewed. In addition, official CT report reviewed.
Pulse Ox: not hypoxic
EKG independently reviewed: N/A
Pocket Grinder Operator: N/A
Critical Care: N/A
Risk of Complication:
Social Determinants of health: Good social support
Discussed with other providers: Hospitalist
Escalation of Care includes Admit/Obs: Given her inability to ambulate, will admit
Occasional wrong word or 'sound a like' substitutions may have occurred due to the inherent limitations of voice recognition software. Read the chart carefully and recognize, using context, where substitutions have occurred.
*Critical Care Note
Total Time (30-74mins, 75-104mins- exclusive of procedures): Not Applicable
ED Attending Note
-
Portions of this chart may have been created with voice recognition software.� Occasional wrong word or��sound alike� substitutions may have occurred due to the inherent limitations of voice recognition software.
Discharge Plan
Departure
Patient Disposition: Admit
Date of Disposition: 06/22/24
Time of Disposition: 16:50
Admit to: Med/Surg
Presentation/result/management discussed w/ accepting MD/DO: Hospitalist
Discharge Problem:
Back pain, Hematuria
Prescriptions:
No Action
atorvastatin 10 MG tablet
10 mg PO HS
donepezil 10 MG tablet
10 mg PO HS
clonazepam 0.5 MG tablet
0.5 mg PO HS
Patient Comments:
01/18/2024: last filled 11/20/23, 30 tabs for 30 days from [facility]
levothyroxine 75 MCG tablet
75 mcg PO Q48H
magnesium 200 MG tablet
400 mg PO DAILY
cholecalciferol (vitamin D3) 2,000 UNITS tablet
2,000 units PO DAILY
polyethylene glycol 3350 [Miralax] 17 gram Powder In Packet
17 g PO DAILY
amlodipine 2.5 mg Tablet
2.5 mg PO DAILY
solifenacin 10 mg tablet
10 mg PO QPM
sennosides [Senna Laxative] 8.6 mg Tablet
17.2 mg PO BID Qty: 30 0RF
aspirin 325 mg Tablet
325 mg PO DAILY Qty: 28 0RF
magnesium hydroxide 400 mg/5 mL Suspension
30 ml PO DAILYPRN PRN (Reason: constipation) Qty: 10 0RF
docusate sodium 100 mg Capsule
100 mg PO BID Qty: 20 0RF
acetaminophen 500 mg capsule
1,000 mg PO TID Qty: 60 0RF
tramadol 25 mg tablet
25 mg PO Q6H PRN (Reason: severe pain) Qty: 10 0RF
Referrals:
Mariam Ramachandran MD [Family Provider] -
Interventions
Interventions:
*Risk Screen - Suicide Last Done: 06/22/24 13:06
*General Assessment Last Done: 06/22/24 13:06
*Neglect/Abuse Screening Last Done: 06/22/24 13:06
*ED COVID-19 Vaccine History Last Done: 06/22/24 13:18
ED-Musculoskeletal Assessment Last Done: 06/22/24 16:07
Discharge Date and Time
Print Language: HUNGARIAN
[2024-06-22] MEDS: VALIUM INJECTION 2 MG IV (15:14)
[2024-06-22 15:21] LABS: % Basophils 0.6 % (0-2); % Eosinophils 1.6 % (0-6); % Immature Granulocytes 0.4 % (0-0.5); % Lymphocytes 14.2 % (20.5-51.1); % Monocytes 4.1 % (1.7-9.3); % Neutrophils 79.1 % (42.2-75.2); Absolute Eosinophils 0.1 10^3/uL (0-0.7); Absolute Lymphocytes 0.7 10^3/uL (1.2-3.4); Absolute Monocytes 0.2 10^3/uL (0.1-0.6); Hematocrit 40.6 % (37.0-47.0); Mean Corp Hgb Conc. 34.5 g/dL (33.0-37.0); Mean Corpuscular Hgb 32.3 pg (27.0-31.0); Mean Corpuscular Volume 93.5 fL (81.0-99.0); Mean Platelet Volume 10.1 fL (7.4-10.4); Nucleated Red Blood Cells % 0 %; Platelet Count 200 10^3/uL (130-400); Red Blood Cell Count 4.34 10^6/uL (4.20-5.40); Red Cell Dist. Width 13.8 % (11.5-14.5); White Blood Cell Count 5.1 10^3/uL (4.8-10.8)
[2024-06-22 15:52] LABS: Blood Urea Nitrogen 25 mg/dl (7-17); Calcium 10.1 mg/dl (8.4-10.2); Carbon Dioxide 27 mmol/L (22-30); Chloride 104 mmol/L (98-107); Estimated Creatinine Clearance 50 ml/min; Glucose 102 mg/dl (70-99); Sodium 141 mmol/L (135-145); eGFR > 60.00
--- NOTE | 2024-06-22 17:18 | HPS.HSE ---
Family Physician
-
Family Physician: Mariam Ramachandran
Chief Complaint
-
Back Pain
History of Present Illness
Patient is an 88 y/o female past medical history of hypertension, hyperlipidemia, hypothyroidism, dementia and post-op DVT who presents with acute onset of back pain. Patient reports she was in her usual state of health earlier today. She reports
she was doing laundry, moving clothes from the washer to the dryer when she developed some back pain. She reports she sat on a chair to rest and when she stood up she had severe right-sided back pain. She denies any pain radiating down the leg.
She denies any numbness/tingling of the legs. She reports chronic urinary incontinence which is unchanged.
Medical History
Past Medical History
Past Medical History: Reports Other
Additional Past Medical History:
Essential Hypertension
Hyperlipidemia
Hypothyroidism
Alzheimer's Dementia
Post-Op DVT in February 2024
Past Surgical History: Reports Other
Additional Past Surgical History:
Right Hemiarthroplasty
Bowel Resection for Perforated Colon
Social History
Tobacco: Non-smoker
Alcohol: None
Living: Alone (Independent living apartment at [facility])
Family History
Family History: Not pertinent
Allergies / Home Medications
Allergies reflects when Allergies were last updated in [employer].
Home Medications with original date entered in [employer]
Allergy/Medication List:
Allergies
Allergy/AdvReac Type Severity Reaction Status Date / Time
No Known Allergies Allergy Verified 06/22/24 13:06
Home Medications
atorvastatin 10 mg tablet 10 mg PO HS High Cholesterol 03/04/22
cholecalciferol (vitamin D3) 50 mcg (2,000 unit) tablet 2,000 units PO DAILY Supplement 03/04/22
donepezil 10 mg tablet 10 mg PO HS Neurological Condition 03/04/22
levothyroxine 75 mcg tablet 75 mcg PO Q48H Thyroid 03/04/22
amlodipine 2.5 mg tablet 2.5 mg PO HS Blood Pressure 01/18/24
polyethylene glycol 3350 17 gram oral powder packet (Miralax) 17 g PO DAILYPRN PRN constipation 01/18/24
acetaminophen 500 mg capsule 1,000 mg PO TIDPRN PRN mild pain 06/22/24
carboxymethylcellulose sodium 0.25 % eye drops (TheraTears) 2 drp BOTH EYES BIDPRN PRN dry eyes 06/22/24
cranberry fruit 450 mg tablet (cranberry) 450 mg PO HS 06/22/24
magnesium oxide 400 mg PO DAILY 06/22/24
melatonin 3 mg tablet 3 mg PO HSPRN PRN sleep 06/22/24
Review of Systems
-
A 12 point ROS was completed and negative except as noted: Yes
Constitutional: Denies Fever or Chills
Respiratory: Denies Cough or Trouble Breathing
Cardiac: Denies Chest Pain or Palpitations
Physical Exam
Vital Signs
Vital Signs
Temp Pulse Resp BP Pulse Ox
98.8 F 54 18 142/69 97
06/22/24 13:06 06/22/24 13:06 06/22/24 13:06 06/22/24 15:14 06/22/24 16:00
Physical Exam
General: Well Developed and Well Nourished
HEENT: Anicteric and Moist mucous membranes
Respiratory: Clear and Non Labored Respirations
Cardiac: S1/S2 and Regular Rhythm
GI: Soft, Non Distended, Normal Bowel Sounds and Other (Palpation of abdomen triggered significant spasms resulting in significant pain)
Rectal: Deferred by Provider
Musculoskeletal: No Clubbing, No Cyanosis, No Edema and Other (Movement triggers back pain)
Skin: Warm and Dry
Neuro: Awake, Alert and Nonfocal/grossly intact
Psych: Calm
Laboratory Results
-
06/22/24 15:13
06/22/24 15:13
Laboratory Results
Total Bilirubin Cancelled 06/22/24 15:13
AST Cancelled 06/22/24 15:13
ALT Cancelled 06/22/24 15:13
Alkaline Phosphatase Cancelled 06/22/24 15:13
Data Reviewed
-
CT Scan: Report Reviewed by me
Lab Data: Labs Reviewed by me
Impression/Plan
-
Acute Right Sided Back Pain
-Check Lumbar Spine MRI
-Consult PT/OT
-Will use Flexeril for spasms
-Continue Tylenol for mild pain, Toradol for moderate pain, and tramadol for severe pain
Essential Hypertension
-Continue amlodipine with hold parameters
Hyperlipidemia
-Continue atorvastatin
Hypothyroidism
-Continue levothyroxine
Alzheimer's Dementia
-Continue donepezil
-Monitor for increased confusion
DVT proph: Lovenox
Code Status: Full Code
--- NOTE | 2024-06-22 17:48 | W.PN.UPDATE ---
Update Note
Progress Note Update
Patient seen and examined and discussed with YESSY Jaquez and I agree with her note.
Gen-AAOx3, NAD
HEENT-NC, AT, anicteric, clear oral mm
Neck-supple
CV-reg, no M, +S1/S2
Lungs-clear B/L
Abd-soft, NT, ND
Ext-no edema
Musculoskeletal-no cyanosis, clubbing, very tender right paravertebral muscles, limited active right leg straight raise due to significant lower back pain
Skin-warm and dry
Neuro-grossly non-focal
Psych-calm, cooperative
Intractable back pain - mainly in the lumbar paravertebral muscles on the right side. Denies radicular symptoms of pain. Denies history of back pain in the past. Symptoms started abruptly this morning while she was doing laundry at home. Did not
feel a popping sensation. Did not have pain earlier in the morning when she woke up. Differential diagnosis includes paravertebral muscle spasm with sprain/strain, lumbar intervertebral disc herniation, less likely fracture or infection. Admit to
MedSurg. Continue analgesics, antispasmodics. Can try Lidoderm patch. PT/OT.
Obtain lumbar MRI to rule out disc herniation or other pathology.
Overactive bladder -symptoms previously controlled on anticholinergics but according to the patient it stopped working a month ago and was discontinued by her urologist Dr. Gladys Esquivel. Currently has a pure wick in place.
Recent RLE DVT -February 2024, after right hip fracture surgery. Nonocclusive thrombus involving the distal CFV to popliteal veins. Presumably completed course of anticoagulation.
Right subcapital femoral neck fracture -repaired on January 19, 2024 with right hip hemiarthroplasty.
Essential hypertension -continue amlodipine.
Hyperlipidemia -continue atorvastatin.
Hypothyroidism -continue levothyroxine.
Alzheimer's dementia -continue donepezil.
Full code
--- NOTE | 2024-06-22 20:00 | PTCARENOTE ---
Patient arrived from the ED via stretcher. Patient pulled over onto bed by staff. Patient AAOx3, VSS. Patient c/o lower right back pain. Tylenol given, see MAR. Patient oriented to the room, informed about plan of care. Call hunter is within reach.
[2024-06-22] MEDS: LOVENOX 40 MG SC (21:05)
[2024-06-22] MEDS: FLEXERIL 5 MG PO (21:06)
[2024-06-22] MEDS: ARICEPT 10 MG PO (21:06)
[2024-06-22] MEDS: LIPITOR 10 MG PO (21:06)
[2024-06-22] MEDS: NORVASC 2.5 MG PO (21:06)
[2024-06-22] MEDS: TYLENOL 1000 MG PO (21:22)
[2024-06-23 08:09] VITALS: BP 134/64
[2024-06-23] MEDS: FLEXERIL 5 MG PO ×3 (08:10→21:19)
[2024-06-23] MEDS: TYLENOL 1000 MG PO (08:10)
--- NOTE | 2024-06-23 09:12 | W.PN.HOSP.TC ---
Addendum entered and electronically signed by Gasper Jones DO 06/23/24 12:52:
PT/OT recommending SNF.
Medically stable for discharge to SNF.
Case management aware.
Original Note:
Today's Communication/Plan
-
PT/OT
Change Toradol to [id number]
Lidoderm patch
Detrol LA
Assessment / Plan
Assessment / Plan
Gen-AAOx3, NAD
HEENT-NC, AT, anicteric, clear oral mm
Neck-supple
CV-reg, no M, +S1/S2
Lungs-clear B/L
Abd-soft, NT, ND
Ext-no edema
Musculoskeletal-no cyanosis, clubbing, tender right lower lateral paraspinal muscles
Skin-warm and dry
Neuro-grossly non-focal
Psych-calm, cooperative
Intractable back pain - mainly in the lumbar paravertebral muscles on the right side. Denies radicular symptoms of pain. Denies history of back pain in the past.
MRI lumbar spine without concerning findings.
Will change Toradol to 15 mg IV every 6 hours [id number]. Lidoderm patch. Continue Flexeril. Discontinue Beng[place].
PT/OT. She needs to work on strengthening core muscles. Discussed with patient.
Overactive bladder -symptoms previously controlled on anticholinergics but according to the patient it stopped working a month ago and was discontinued by her urologist Dr. Gladys Esquivel. Currently has a pure wick in place. Can try Detrol in
the [facility], patient agreeable.
Recent RLE DVT -February 2024, after right hip fracture surgery. Nonocclusive thrombus involving the distal CFV to popliteal veins. Presumably completed course of anticoagulation.
Right subcapital femoral neck fracture -repaired on January 19, 2024 with right hip hemiarthroplasty.
Essential hypertension -continue amlodipine.
Hyperlipidemia -continue atorvastatin.
Hypothyroidism -continue levothyroxine.
Alzheimer's dementia -continue donepezil.
Full code
Anticipated Discharge: Within 24 hours
Subjective/Interval History
-
Date of Service: June 23, 2024
Patient seen and examined. Complaining of severe lower back pain with muscle spasms. Painful to move.
Objective Data
-
Vital Signs:
Vital Signs
Temp Pulse Resp BP Pulse Ox
97.9 F 51 18 134/64 95
06/23/24 08:09 06/23/24 08:09 06/23/24 08:09 06/23/24 08:09 06/23/24 08:09
I&O
06/22/24 06/23/24 06/24/24
06:59 06:59 06:59
Intake Total 480 / 480
Output Total 125 / 125
Balance 355 / 355
Review of Systems
-
History Source: Patient
All other systems: Reviewed and negative
[2024-06-23 09:32] VITALS: BP 160/73; PULSE 52
[2024-06-23 09:39] VITALS: BP 160/73; PULSE 52; O2SAT 94
[2024-06-23] MEDS: LIDOCAINE 4% PATCH 1 PATCH TOPICAL (09:43)
[2024-06-23] MEDS: DETROL LA 2 MG PO (09:43)
[2024-06-23] MEDS: TORADOL 15 MG IV ×3 (09:43→21:18)
[2024-06-23 15:37] VITALS: BP 120/69
[2024-06-23] MEDS: LOVENOX 40 MG SC (17:48)
[2024-06-23] MEDS: ARICEPT 10 MG PO (21:19)
[2024-06-23] MEDS: NORVASC 2.5 MG PO (21:19)
[2024-06-23] MEDS: LIPITOR 10 MG PO (21:19)
[2024-06-23 23:17] VITALS: BP 159/66
[2024-06-24] MEDS: TORADOL 15 MG IV ×4 (03:32→21:47)
[2024-06-24] MEDS: SYNTHROID 75 MCG PO (05:25)
[2024-06-24 07:40] VITALS: BP 138/67
[2024-06-24] MEDS: LIDOCAINE 4% PATCH 1 PATCH TOPICAL (09:51)
[2024-06-24] MEDS: FLEXERIL 5 MG PO ×3 (09:51→21:46)
[2024-06-24] MEDS: DETROL LA 2 MG PO (09:52)
--- NOTE | 2024-06-24 10:19 | W.PN.HOSP.TC ---
Today's Communication/Plan
-
Discharge planning
Assessment / Plan
Assessment / Plan
Gen-AAOx3, NAD
HEENT-NC, AT, anicteric, clear oral mm
Neck-supple
CV-reg, no M, +S1/S2
Lungs-clear B/L
Abd-soft, NT, ND
Ext-no edema
Musculoskeletal-no cyanosis, clubbing, tender right lower lateral paraspinal muscles
Skin-warm and dry
Neuro-grossly non-focal
Psych-calm, cooperative
Intractable back pain - mainly in the lumbar paravertebral muscles on the right side. Denies radicular symptoms of pain. Denies history of back pain in the past.
MRI lumbar spine without concerning findings.
Continue Toradol 15 mg IV every 6 hours [id number]. Lidoderm patch. Continue Flexeril.
PT/OT. She needs to work on strengthening core muscles. Discussed with patient.
Overactive bladder -symptoms previously controlled on anticholinergics but according to the patient it stopped working a month ago and was discontinued by her urologist Dr. Gladys Esquivel. Continue Detrol. Discontinue pure wick if able.
Discussed with nursing.
Asymptomatic pyuria/bacteriuria -no indication for antibiotics.
Recent RLE DVT -February 2024, after right hip fracture surgery. Nonocclusive thrombus involving the distal CFV to popliteal veins. Presumably completed course of anticoagulation.
Right subcapital femoral neck fracture -repaired on January 19, 2024 with right hip hemiarthroplasty.
Essential hypertension -continue amlodipine.
Hyperlipidemia -continue atorvastatin.
Hypothyroidism -continue levothyroxine.
Alzheimer's dementia -continue donepezil.
Full code
Dispo -medically stable for discharge to SNF. Case management aware. She [facility] in [facility]. Perhaps can go to the [facility].
Anticipated Discharge: Today
Subjective/Interval History
-
Date of Service: June 24, 2024
Patient seen and examined. Was feeling better this morning with less back pain but when she tried to reach for her remote the back pain started coming back.
Objective Data
-
Vital Signs:
Vital Signs
Temp Pulse Resp BP Pulse Ox
97.7 F 48 18 138/67 95
06/24/24 07:40 06/24/24 07:40 06/24/24 07:40 06/24/24 07:40 06/24/24 07:40
I&O
06/23/24 06/24/24 06/25/24
06:59 06:59 06:59
Intake Total 480 / 480 120 / 120
Output Total 125 / 125 1050 / 1050
Balance 355 / 355 -930 / -930
Review of Systems
-
History Source: Patient
All other systems: Reviewed and negative
[2024-06-24] MEDS: MIRALAX 17 GRAMS PO (11:54)
[2024-06-24 15:28] VITALS: BP 101/56
[2024-06-24] MEDS: LOVENOX 40 MG SC (17:06)
--- NOTE | 2024-06-24 17:09 | CM ---
Larissa is ready for discharge on Thursday.
it would help if sheCM met with Larissa multiple times throughout the day today and also spoke with her daughter, followed by texts, as daughter was unable to converse due to her workload (she is a psychologist).
Larissa lives at [facility]. She has back spasms which are causing pain and inability to return to her apartment; she had hip repair several months ago and has been having spasms more recently. Referrals sent to [facility], [facility], [facility], [facility], [facility], [facility] and [facility].
Pt accepted for transfer to [facility] and agreeable.
Late in the day, daughter texted asking for transfer to [facility] which I advised her was not the appropriate level of care, but sent the referral at her request. [facility] has dclined admission, stating she is not appropriate for acute
rehab. Daughter advised of same and I reiterated bed availability at [facility] for tomorrow which is local to where her mother lives. Daughter then sent text that 'it would help if she were closer to us if she's not at [facility]'. Daughter had
already shared that she will be away for part of next week.
Daughter will call in AM to the main CM number.
[2024-06-24] MEDS: ARICEPT 10 MG PO (21:46)
[2024-06-24] MEDS: LIPITOR 10 MG PO (21:46)
[2024-06-24] MEDS: NORVASC 2.5 MG PO (21:47)
[2024-06-24 23:00] VITALS: BP 154/67
[2024-06-25] MEDS: TORADOL IV (05:20)
[2024-06-25 07:15] VITALS: BP 154/67
[2024-06-25] MEDS: DETROL LA 2 MG PO (08:27)
[2024-06-25] MEDS: FLEXERIL 5 MG PO (08:27)
[2024-06-25] MEDS: TORADOL 15 MG IV (08:28)
[2024-06-25] MEDS: LIDOCAINE 4% PATCH 1 PATCH TOPICAL (08:28)
[2024-06-25] MEDS: MIRALAX PO (08:35)
--- NOTE | 2024-06-25 09:30 | W.DS.TRANS ---
DC Summary - Computer [employer]
-
Discharge Instructions:
Discharge Diagnosis/Procedures Intractable back pain, paravertebral muscle
spasm, ambulatory dysfunction
Diet Regular
Activity With assistance,As tolerated
Driving Restrictions No driving
Bathing Restrictions None
Instructions:
Stand-Alone Forms:
Changes to Home Medications: No
Discharge Medications:
DC Medications w/original date entered in [employer]
atorvastatin 10 mg tablet 10 mg PO HS High Cholesterol 03/04/22
cholecalciferol (vitamin D3) 50 mcg (2,000 unit) tablet 2,000 units PO DAILY Supplement 03/04/22
donepezil 10 mg tablet 10 mg PO HS Neurological Condition 03/04/22
levothyroxine 75 mcg tablet 75 mcg PO Q48H Thyroid 03/04/22
amlodipine 2.5 mg tablet 2.5 mg PO HS Blood Pressure 01/18/24
polyethylene glycol 3350 17 gram oral powder packet (Miralax) 17 g PO DAILYPRN PRN constipation 01/18/24
acetaminophen 500 mg capsule 1,000 mg PO TIDPRN PRN mild pain 06/22/24
carboxymethylcellulose sodium 0.25 % eye drops (TheraTears) 2 drp BOTH EYES BIDPRN PRN dry eyes 06/22/24
cranberry fruit 450 mg tablet (cranberry) 450 mg PO HS 06/22/24
magnesium oxide 400 mg PO DAILY 06/22/24
melatonin 3 mg tablet 3 mg PO HSPRN PRN sleep 06/22/24
cyclobenzaprine 10 mg tablet 5 mg (1/2 x 10 mg) PO TID #0 tabs 06/23/24
ibuprofen 800 mg tablet 800 mg PO Q6H PRN Pain #10 tabs 06/23/24
lidocaine 4 % topical patch 1 patch topical DAILY #0 ea 06/23/24
tolterodine 2 mg capsule,extended release 24 hr 2 mg PO DAILY #0 caps 06/23/24
tramadol 50 mg tablet 25 mg (1/2 x 50 mg) PO Q6HPRN PRN severe pain #10 tabs 06/23/24
Home Medication Changes
Pending Results: No
--- NOTE | 2024-06-25 10:00 | CM ---
Addendum entered by Steve James 06/25/24 11:57:
Updated phone and fax numbers.
[facility] nursing report [phone]
Discharge instructions fax: [phone]
Original Note:
CM following re: discharge planning.
Reviewed pt's chart, met with pt and had a long conversation with pt's daughter Anne [phone]
Discharge order noted. Both pt and her daughter are aware, expressed their agreement with discharge. IMM reviewed. placed on chart, pt has a copy.
Both pt and her daughter are aware that only [facility] offered a bed. pt's daughter went back and fourth regarding the choice of SNF and after long discussion and explanations, daughter agrees with [facility].
left a message to [facility] director transportation regarding discharge time.
arranged transportation with picker machine operator time 2:00 p.m. [facility] completed and left with .
Both pt her daughter,RN and [facility] director transportation are aware of discharge time.
[facility] nursing report [phone]
Discharge instructions fax: [phone]
D/C plan: [facility]
--- NOTE | 2024-06-25 11:14 | W.PN.HOSP.TC ---
Today's Communication/Plan
-
Discharge
Assessment / Plan
Assessment / Plan
Gen-AAOx3, NAD
HEENT-NC, AT, anicteric, clear oral mm
Neck-supple
CV-reg, no M, +S1/S2
Lungs-clear B/L
Abd-soft, NT, ND
Ext-no edema
Musculoskeletal-no cyanosis, clubbing, tender right lower lateral paraspinal muscles
Skin-warm and dry
Neuro-grossly non-focal
Psych-calm, cooperative
Intractable back pain - mainly in the lumbar paravertebral muscles on the right side. Denies radicular symptoms of pain. Denies history of back pain in the past.
MRI lumbar spine without concerning findings.
Continue Toradol 15 mg IV every 6 hours [id number]. Lidoderm patch. Continue Flexeril.
PT/OT. She needs to work on strengthening core muscles. Discussed with patient.
Overactive bladder -symptoms previously controlled on anticholinergics but according to the patient it stopped working a month ago and was discontinued by her urologist Dr. Gladys Esquivel. Continue Detrol. Pure wick discontinued.
Asymptomatic pyuria/bacteriuria -no indication for antibiotics.
Recent RLE DVT -February 2024, after right hip fracture surgery. Nonocclusive thrombus involving the distal CFV to popliteal veins. Presumably completed course of anticoagulation.
Right subcapital femoral neck fracture -repaired on January 19, 2024 with right hip hemiarthroplasty.
Essential hypertension -continue amlodipine.
Hyperlipidemia -continue atorvastatin.
Hypothyroidism -continue levothyroxine.
Alzheimer's dementia -continue donepezil.
Full code
Dispo -medically stable for discharge to SNF. Case management aware. She lives in [facility]. Perhaps can go to the [facility].
32 minutes spent in discharge process.
Anticipated Discharge: Today
Subjective/Interval History
-
Date of Service: June 25, 2024
Patient seen and examined. Feeling much better, sitting in the chair. No complaints.
Objective Data
-
Vital Signs:
Vital Signs
Temp Pulse Resp BP Pulse Ox
98 F 51 16 154/67 98
06/25/24 07:15 06/25/24 07:15 06/25/24 07:15 06/25/24 07:15 06/25/24 07:15
I&O
06/24/24 06/25/24 06/26/24
06:59 06:59 06:59
Intake Total 120 / 120 480 / 480
Output Total 1050 / 1050 400 / 400
Balance -930 / -930 80 / 80
Review of Systems
-
History Source: Patient
All other systems: Reviewed and negative
[2024-06-25 13:49] VITALS: BP 126/64
== END 2024-06-25 14:05 | DRG 552 ==
LOC: 4 EAST ACU 18:00
PROVIDERS: ADMITTING PHYSICIAN Hospitalist; EMERGENCY PHYSICIAN Student in an Organized Health Care Education/Training Program; FAMILY PHYSICIAN Internal Medicine Geriatric Medicine
DX: M54.50 Low back pain, unspecified (principal); M62.838 Other muscle spasm; R26.9 Unspecified abnormalities of gait and mobility; M54.9 Dorsalgia, unspecified; E78.00 Pure hypercholesterolemia, unspecified; R82.81 Pyuria; I10 Essential (primary) hypertension; N32.81 Overactive bladder; M81.0 Age-related osteoporosis without current pathological fracture; K57.90 Diverticulosis of intestine, part unspecified, without perforation or abscess without bleeding; R31.9 Hematuria, unspecified; E03.9 Hypothyroidism, unspecified; R32 Unspecified urinary incontinence; F02.80 Dementia in other diseases classified elsewhere, unspecified severity, without behavioral disturbance, psychotic disturbance, mood disturbance, and anxiety; G30.9 Alzheimer's disease, unspecified; Z79.890 Hormone replacement therapy; Z86.718 Personal history of other venous thrombosis and embolism; Z90.49 Acquired absence of other specified parts of digestive tract; Z87.310 Personal history of (healed) osteoporosis fracture
CPT/HCPCS: 72148; 74176; 80048; 81003; 81015; 85025; 87086; 96374; 97162; 97167; 99284

== ENCOUNTER → 2024-06-28 10:20 | Outpatient (REF) | payer MEDICARE, OTHER, SELFPAY ==
[2024-06-28 11:17] LABS: Hematocrit 37.3 % (37.0-47.0); Hemoglobin 12.7 g/dL (12.0-16.0); Mean Corpuscular Hgb 32.7 pg (27.0-31.0); Mean Corpuscular Volume 96.1 fL (81.0-99.0); Mean Platelet Volume 10.6 fL (7.4-10.4); Platelet Count 176 10^3/uL (130-400); Red Blood Cell Count 3.88 10^6/uL (4.20-5.40); Red Cell Dist. Width 14.2 % (11.5-14.5); White Blood Cell Count 4.9 10^3/uL (4.8-10.8)
[2024-06-28 13:49] LABS: ALT (SGPT) 23 U/L (0-35); AST (SGOT) 28 U/L (14-36); Albumin 3.7 g/dl (3.5-5.0); Alkaline Phosphatase 75 U/L (38-126); Blood Urea Nitrogen 22 mg/dl (7-17); Calcium 9.5 mg/dl (8.4-10.2); Carbon Dioxide 27 mmol/L (22-30); Chloride 104 mmol/L (98-107); Glucose 81 mg/dl (70-99); Magnesium 2.1 mg/dl (1.6-2.3); Potassium 4.6 mmol/L (3.5-5.1); Sodium 142 mmol/L (135-145); Total Bilirubin 0.3 mg/dl (0.2-1.3); Total Protein 6.1 g/dl (6.3-8.2); eGFR > 60.00
[2024-06-28 13:52] LABS: Urine Albumin Negative (Neg - Trace); Urine Bilirubin Negative (Negative); Urine Character Clear (Clear); Urine Color Straw; Urine Glucose Negative (Negative); Urine Ketone Negative (Negative); Urine Leukocyte Negative (Negative); Urine Nitrite Negative (Negative); Urine Occult Blood Negative (Negative); Urine Urobilinogen Negative (Neg - 1+)
== END ==
LOC: OLABWHC 10:20
PROVIDERS: ATTENDING PHYSICIAN Family Medicine
DX: I10 Essential (primary) hypertension (principal); E78.5 Hyperlipidemia, unspecified; N30.00 Acute cystitis without hematuria
CPT/HCPCS: 36415; 80053; 81003; 83735; 85027; 87086